=== PATIENT | female | born 1990 | race Caucasian/White ===

== ENCOUNTER 2023-08-19 09:56 | Emergency (ER) | payer MEDICAID ==
[~2023-08-19] VITALS: Ht 152.4 cm; Wt 51.7 kg
[2023-08-19 10:06] VITALS: BP 143/105; PULSE 103; RESP 15; TEMP 97.8; O2SAT 95
[2023-08-19 11:00] LABS: FLU A ANTIGEN negative (NEGATIVE); FLU B ANTIGEN negative (NEGATIVE)
[2023-08-19] MEDS ORDERED: DEXT118S25 PO (12:36)
== END 2023-08-19 13:00 | disposition home or self-care (01) ==
LOC: MED 09:56
DX: J06.9 Acute upper respiratory infection, unspecified (principal); Z20.822 Contact with and (suspected) exposure to COVID-19; Z88.8 Allergy status to other drugs, medicaments and biological substances
CPT/HCPCS: 71045; 99284